=== PATIENT | male | born 1975 | race Caucasian/White ===

== ENCOUNTER 2022-05-13 18:07 | Emergency (ER) | payer OTHER, SELFPAY ==
[2022-05-13 18:08] VITALS: BP 133/98; PULSE 72; RESP 13; TEMP 36.9; O2SAT 99; BMI 30.2
--- NOTE | 2022-05-13 18:24 | ECG_ITS ---
APPROVED REPORT Exam: Resting ECG HR:72 bpm ECG Measurements Heart Rate 72 AXES TN 195 P 7 QRSd 109 QRS -74 QT 385 T 35 QTc 409 Conclusion SINUS RHYTHM LEFT ANTERIOR FASCICULAR BLOCK [QRS AXIS <= -45, QR IN I, RS IN II] ABNORMAL ECG UNCONFIRMED REPORT Electronically signed by : Alton Oneill MD 05/15/2022 21:18:59
--- NOTE | 2022-05-13 18:29 | XR_ITS ---
PROCEDURE INFORMATION: Exam: XR Chest Exam date and time: 05/13/2022 7:41 PM Age: 47 years old Clinical indication: Pain; Angina pectoris; Additional info: Chest pain/shoulder pain TECHNIQUE: Imaging protocol: Radiologic exam of the chest. Views: 1 view. COMPARISON: CT ANGIO CHEST 05/13/2022 7:23 PM FINDINGS: Lungs: Unremarkable. No consolidation. Pleural spaces: Unremarkable. No pleural effusion. No pneumothorax. Heart/Mediastinum: Unremarkable. No cardiomegaly. Bones/joints: Unremarkable. IMPRESSION: No acute findings.
[2022-05-13 18:30] VITALS: BP 141/97; PULSE 71; RESP 18; O2SAT 97
--- NOTE | 2022-05-13 18:33 | XR_ITS ---
PROCEDURE INFORMATION: Exam: XR Left Shoulder Exam date and time: 05/13/2022 7:41 PM Age: 47 years old Clinical indication: Pain; Shoulder; Left TECHNIQUE: Imaging protocol: Radiologic exam of the Left shoulder. Views: 2 or more views. COMPARISON: CT CERVICAL SPINE WO CON 05/13/2022 7:18 PM FINDINGS: Bones/joints: Osseous alignment is normal. No acute fracture or significant arthritic change seen. Soft tissues: Normal. IMPRESSION: Negative left shoulder
[2022-05-13 18:44] LABS: Basophils # 0.1 K/mm3 (0-0.2); Basophils % 1.1 % (0.1-2.0); Eosinophils # 0.1 K/mm3 (0.0-0.4); Eosinophils % 1.7 % (0.1-12.0); Hematocrit 45.3 % (42.0-52.0); Hemoglobin 15.3 g/dL (14.1-18.0); Lymphocytes # 2.5 K/mm3 (0.7-4.5); Lymphocytes % 40.6 % (10-50); Mean Corpuscular HGB Conc 33.7 g/dL (31.8-35.4); Mean Corpuscular Hemoglobin 30.3 pg (27.0-31.2); Mean Corpuscular Volume 89.9 fl (80-94); Mean Platelet Volume 7.3 fl (7.4-10.4); Monocytes # 0.4 K/mm3 (0.1-1.0); Monocytes % 6.9 % (1.7-9.3); Neutrophils # 3.1 K/mm3 (1.8-7.8); Neutrophils % 49.7 % (37.0-80.0); Platelet Count 285 K/mm3 (142-424); Red Blood Count 5.03 M/mm3 (4.60-6.20); Red Cell Distribution Width 13.9 % (11.5-17.5); White Blood Count 6.3 K/mm3 (4.8-10.8)
[2022-05-13 18:47] LABS: Chloride 107 mmol/L (98-107); Potassium 3.9 mmoL/L (3.5-5.1); Sodium 138 mmol/L (136-145)
[2022-05-13 18:50] LABS: Alanine Aminotransferase 26 U/L (12-78); Albumin Level 4.2 g/dl (3.5-5.0); Alkaline Phosphatase 62 U/L (38-126); Anion Gap 10.9 mEq/L (5-15); Aspartate Amino Transferase 32 U/L (17-59); Bilirubin,Direct 0.2 mg/dl (0.0-0.4); Bilirubin,Indirect 0.2 mg/dL (0.0-0.9); Bilirubin,Total 0.4 mg/dl (0.2-1.3); Bilirubin,Unconjugated 0.1 mg/dL (0.0-1.1); Blood Urea Nitrogen 9 mg/dl (9-20); Calcium 8.6 mg/dl (8.4-10.2); Carbon Dioxide 24 mmol/L (22.0-30.0); Creatinine Clearance Estimated 104 mL/min (50-200); Estimated Glomerular Filt Rate 79 ml/min (>60); GFR (African American) 96 ML/MIN (>60); Glucose 101 mg/dl (74-100); Total Protein,Serum 7.6 g/dl (6.3-8.2)
--- NOTE | 2022-05-13 18:54 | PC.NURSE ---
states that pt has been having blurry vision as well. PT states that his left eye is blurry and has been today. MD marques
--- NOTE | 2022-05-13 18:56 | CT_ITS ---
PROCEDURE INFORMATION: Exam: CT Head Without Contrast Exam date and time: 05/13/2022 7:16 PM Age: 47 years old Clinical indication: Stroke-like symptoms; Left upper extremity and other: Left side of face numbness/paresthesia; Additional info: New headache, lue issues TECHNIQUE: Imaging protocol: Computed tomography of the head without contrast. Radiation optimization: All CT scans at this facility use at least one of these dose optimization techniques: automated exposure control; mA and/or kV adjustment per patient size (includes targeted exams where dose is matched to clinical indication); or iterative reconstruction. Other technique: STROKE PROTOCOL was implemented. COMPARISON: No relevant prior studies available. FINDINGS: Brain: No acute intracranial findings. No intracranial hemorrhage. No edema, swelling or mass-effect. No significant white matter disease. There are a few tiny bilateral basal ganglia calcifications which can be physiologic at this age, though these can also be seen with endocrinologic and metabolic diseases. Minimal meningeal calcifications. Cerebral ventricles: The ventricles are normal for age. No hydrocephalus. Paranasal sinuses: Mild bilateral ethmoid sinus mucosal thickening and some opacified air cells. Very mild left maxillary sinus mucosal thickening. No air-fluid levels. Mastoid air cells: Trace fluid within the inferior mastoid air cells bilaterally, with some tiny air-fluid levels, greater on the right, see series 3, image 2. Orbital cavities: No acute intraorbital findings, as visualized. Bones/joints: No acute skull fracture. No lytic lesions. Soft tissues: There are no soft tissue masses or fluid collections. Some scalp calcifications. IMPRESSION: 1. There is no CT evidence of intracranial mass, intracranial hemorrhage, or acute infarct. 2. Trace bilateral mastoid effusions greater on the right. Correlate for possible early acute mastoiditis. 3. Mild chronic ethmoid and maxillary sinusitis; no acute air-fluid levels. 4. Additional nonemergency and chronic findings as above. ASSESSMENT: ASPECTS ([place] Stroke Program Early CT Score) is 10.
--- NOTE | 2022-05-13 18:56 | CT_ITS ---
PROCEDURE INFORMATION: Exam: CTA Head With Contrast, Arteriography Exam date and time: 05/13/2022 7:20 PM Age: 47 years old Clinical indication: Stroke-like symptoms; Lt upper extremity weakness; Additional info: New headache, lue issues TECHNIQUE: Imaging protocol: Computed tomographic angiography of the head with contrast. Exam focused on the arteries. 3D rendering (Not supervised by radiologist): MIP and/or 3D reconstructed images were created by the technologist. Radiation optimization: All CT scans at this facility use at least one of these dose optimization techniques: automated exposure control; mA and/or kV adjustment per patient size (includes targeted exams where dose is matched to clinical indication); or iterative reconstruction. Contrast material: ISOVUE 370; Contrast volume: 75 ml; Contrast route: INTRAVENOUS (IV); COMPARISON: CT HEAD/BRAIN WO CON 05/13/2022 7:16 PM FINDINGS: ANTERIOR CIRCULATION: Right internal carotid artery: Intracranial segment is patent with no significant stenosis. No aneurysm. Right middle cerebral artery: No occlusion or significant stenosis. No aneurysm. Right anterior cerebral artery: No occlusion or significant stenosis. No aneurysm. Left internal carotid artery: Intracranial segment is patent with no significant stenosis. No aneurysm. Left middle cerebral artery: No occlusion or significant stenosis. No aneurysm. Left anterior cerebral artery: No occlusion or significant stenosis. No aneurysm. POSTERIOR CIRCULATION: Right vertebral artery: No occlusion or significant stenosis. No aneurysm. Left vertebral artery: Slightly dominant. No occlusion or significant stenosis. No aneurysm. Basilar artery: No occlusion or significant stenosis. No aneurysm. Right posterior cerebral artery: No occlusion or significant stenosis. No aneurysm. Prominent patent right posterior communicating artery also noted. Left posterior cerebral artery: No occlusion or significant stenosis. No aneurysm. Brain: No definite mass, mass effect, or midline shift. Cerebral ventricles: No ventriculomegaly. Bones/joints: Unremarkable. No acute fracture. Soft tissues: No acute findings. IMPRESSION: No large vessel stenosis or occlusion.
--- NOTE | 2022-05-13 18:56 | CT_ITS ---
PROCEDURE INFORMATION: Exam: CTA Neck With Contrast Exam date and time: 05/13/2022 7:20 PM Age: 47 years old Clinical indication: Stroke-like symptoms; Lt upper extremity weakness; Additional info: New headache, lue issues TECHNIQUE: Imaging protocol: Computed tomographic angiography of the neck with contrast. 3D rendering (Not supervised by radiologist): MIP and/or 3D reconstructed images were created by the technologist. Radiation optimization: All CT scans at this facility use at least one of these dose optimization techniques: automated exposure control; mA and/or kV adjustment per patient size (includes targeted exams where dose is matched to clinical indication); or iterative reconstruction. Contrast material: ISOVUE 370; Contrast volume: 75 ml; Contrast route: INTRAVENOUS (IV); COMPARISON: CT CERVICAL SPINE WO CON 05/13/2022 7:18 PM FINDINGS: Right common carotid artery: No stenosis. No dissection or occlusion. Right internal carotid artery: No stenosis of the extracranial segment. No dissection or occlusion. Right external carotid artery: No occlusion or stenosis of the origin. Left common carotid artery: No stenosis. No dissection or occlusion. Left internal carotid artery: No stenosis of the extracranial segment. No dissection or occlusion. Left external carotid artery: No occlusion or stenosis of the origin. Right vertebral artery: No stenosis. No dissection or occlusion. Left vertebral artery: Dominant left vertebral artery. No stenosis. No dissection or occlusion. Soft tissues: There are no soft tissue masses or fluid collections. Bones/joints: No acute fracture. For detailed cervical spine findings, please see the cervical spine CT report. Other findings: For intracranial findings, please see the previously dictated head CT report. IMPRESSION: No stenosis or occlusion. REFERENCES: NASCET CRITERIA. The degree of stenosis in the cervical segment of the internal carotid artery is based on NASCET criteria. Normal is no stenosis. Mild is less than 50% stenosis. Moderate is 50-69% stenosis. Severe is 70% to 99% stenosis. Total occlusion is no detectable patent lumen. THIS REPORT CONTAINS FINDINGS THAT MAY BE CRITICAL TO PATIENT CARE. STROKE PROTOCOL EXAM. The findings were verbally communicated via telephone conference with Gaviota Richmond at 7:47 PM EST on 05/13/2022. The findings were acknowledged and understood.
--- NOTE | 2022-05-13 18:56 | CT_ITS ---
PROCEDURE INFORMATION: Exam: CT Cervical Spine Without Contrast Exam date and time: 05/13/2022 7:18 PM Age: 47 years old Clinical indication: Numbness; Additional info: New headache, lue issues. Numbness to left side of face TECHNIQUE: Imaging protocol: Computed tomography of the cervical spine without contrast. Radiation optimization: All CT scans at this facility use at least one of these dose optimization techniques: automated exposure control; mA and/or kV adjustment per patient size (includes targeted exams where dose is matched to clinical indication); or iterative reconstruction. COMPARISON: CT HEAD/BRAIN WO CON 05/13/2022 7:16 PM FINDINGS: Bones/joints: No acute fracture. Normal alignment. Abnormal kyphotic curvature suggests cervical muscle spasm. Mild degenerative osteoarthrosis anteriorly at C1-C2 with periarticular spurs and sclerosis. The central spinal canal appears developmentally slightly small and snug for the cord at the C2 through C4 levels, and the canal appears mildly stenotic approximately 10 mm AP diameter at the C2-C3 , C3-C4 and C4-C5 disc levels. There is degenerative disc narrowing and spondylosis at C5-C6, with posterior disc protrusion indenting the thecal sac and mildly stenosing the canal at this level, sagittal series 1002, image 50, canal slightly less than 10 mm AP diameter. Mild disc bulging posteriorly C6-C7 with minimal narrowing of the spinal canal. There is no high-grade central spinal stenosis. The neural foramina appear adequate for exiting nerve roots at each level, with no high-grade foraminal stenoses. Other:For cranial findings, please see the head CT report. Lungs: Lung apices are unremarkable as visualized. Soft tissues: There are no soft tissue masses or fluid collections. IMPRESSION: 1. No acute fracture or listhesis. 2. Mild central spinal stenosis throughout, developmentally slightly small central spinal canal, and there is a shallow posterior disc protrusion at C5-C6 and mild bulging at the other levels. No high-grade spinal stenosis. 3. No significant foraminal stenoses. 4. Cervical muscle spasm. 5. Additional nonemergency and chronic findings as above.
--- NOTE | 2022-05-13 18:58 | CT_ITS ---
PROCEDURE INFORMATION: Exam: CTA Chest With Contrast Exam date and time: 05/13/2022 7:23 PM Age: 47 years old Clinical indication: Pain; Angina pectoris; Additional info: Pain radiating up to head, to back, and down lue TECHNIQUE: Imaging protocol: Computed tomographic angiography of the chest with contrast. 3D rendering (Not supervised by radiologist): MIP and/or 3D reconstructed images were created by the technologist. Radiation optimization: All CT scans at this facility use at least one of these dose optimization techniques: automated exposure control; mA and/or kV adjustment per patient size (includes targeted exams where dose is matched to clinical indication); or iterative reconstruction. Contrast material: ISOVUE 370; Contrast volume: 75 ml; Contrast route: INTRAVENOUS (IV); COMPARISON: CT ANGIO NECK 05/13/2022 7:20 PM FINDINGS: Pulmonary arteries: Normal. No pulmonary emboli. Aorta: Unremarkable. No aortic aneurysm. No aortic dissection. Lungs: Unremarkable. No consolidation. No masses. Pleural spaces: Unremarkable. No pneumothorax. No pleural effusion. Heart: Unremarkable. No cardiomegaly. No pericardial effusion. Lymph nodes: Unremarkable. No enlarged lymph nodes. Bones/joints: Unremarkable. No acute fracture. Soft tissues: Unremarkable. IMPRESSION: No acute findings.
--- NOTE | 2022-05-13 18:58 | HMH.EDGENADL ---
Discharge Plan Disposition Patient Disposition: Home, Self-Care Condition: Good Prescriptions Prescriptions: New methocarbamol 750 mg tablet 750 mg PO Q8H PRN (Reason: pain) Qty: 20 0RF naproxen 500 mg tablet 500 mg PO Q8H PRN (Reason: pain) Qty: 20 0RF Referrals Follow up/Referrals: Provider,Referral, [Primary Care Provider] - See instructions Activity Restrictions/Add. Instructions Additional Instructions/Restrictions: You were evaluated in the emergency department today. Please follow-up with your primary care provider over the next 48 hours. complaint evaluation supervisor your prescriptions and take them as needed for pain. Return to the emergency department for any new or worsening symptoms. Clinical Impressions Clinical Impression: Cervical radicular pain Instructions Patient Instructions: DI for Cervical Radiculopathy, DI for Acute Pain -- Adult Discharge ED Provider: Gaviota Richmond General Adult HPI General Chief complaint: PAIN Stated complaint: GOMEZ, pain left arm Time Seen by Provider: 05/13/22 18:29 Mode of Arrival: Ambulatory Source of Information: Patient Limitations: No Limitations Description of Symptoms (Recalled from ER Triage Doc. by RN): c/o left shoulder pain that comes into his left chest down to his elbow, pain started at work this morning sometime. The pain comes and goes without doing anything. Left sided GOMEZ that started at the same time History of Present Illness HPI narrative: This patient is a 47-year-old male who reports a history of cardiomegaly presented to the emergency department for evaluation of left-sided headache, left-sided neck pain, and left-sided shoulder pain that radiates to his left chest. It also goes down his left upper extremity to his elbow. He describes it as a sharp shooting pain. He denies any recent traumatic injuries. he denies experiencing anything like this in the past. He reports that he has had a daily headache for the last several days, which is new for him. He denies any vision changes, numbness, tingling, unilateral weakness, or other concerns. He did not take any medications at home to alleviate his symptoms. He denies any shortness of breath, abdominal pain, nausea, vomiting, changes in bowel movements, or other concerns. Related Data Previous Rx's Medication Instructions Recorded methocarbamol 750 mg tablet 750 mg PO Q8H PRN pain #20 tabs 01/04/23 naproxen 500 mg tablet 500 mg PO Q8H PRN pain #20 tabs 05/13/22 Allergies Allergy/AdvReac Type Severity Reaction Status Date / Time No Known Allergies Allergy Verified 05/13/22 18:36 [facility] Disclaimer: The information contained in this section may have been updated after the patient was seen, as this information can be updated by other users. Social History Smoking Status: Current every day smoker alcohol intake: never current occupational status: employed Travel in the last 8 weeks: None ROS Obtained: Yes All systems reviewed & no additional complaints except as documented 14 point review of systems obtained and negative except as mentioned in HPI. Physical Exam General General appearance: alert and in no apparent distress Head Head exam: atraumatic and normocephalic Eye Eye exam: Present normal appearance, PERRL and EOMI ENT ENT exam: Present normal exam and normal oropharynx Neck Neck exam: Present normal inspection, full ROM and trachea midline Chest Chest inspection: Present normal inspection and symmetric chest wall rise; Absent tenderness Respiratory Respiratory exam: Present normal lung sounds bilaterally; Absent respiratory distress Cardiovascular Cardiovascular exam: Present regular rate and normal rhythm Abdominal Exam Abdominal exam: Present soft; Absent distention, tenderness or guarding Extremities Exam Extremities exam: Present normal inspection, full ROM and normal capillary refill; Absent tenderness or edema
[2022-05-13 19:00] VITALS: BP 133/97; PULSE 69; RESP 17; O2SAT 100
[2022-05-13 19:11] LABS: Troponin I < 0.01 ng/ml (0.00-0.034)
--- NOTE | 2022-05-13 19:12 | PC.NURSE ---
pt is radiology
--- NOTE | 2022-05-13 19:30 | PC.NURSE ---
Pt back in room from RAD. RAD at for portable CXR.
--- NOTE | 2022-05-13 19:53 | PC.NURSE ---
pt in bed, family in room,stated nothing was needed
[2022-05-13 20:00] VITALS: BP 133/92; PULSE 65; RESP 18; O2SAT 100
--- NOTE | 2022-05-13 20:22 | PC.NURSE ---
Dr. Richmond at BS
[2022-05-13 20:51] VITALS: BP 124/96; PULSE 69; RESP 15; TEMP 37.1; O2SAT 100
== END 2022-05-13 20:55 | disposition home or self-care (01) ==
PROVIDERS: Emergency Provider Emergency Medicine
DX: M54.12 Radiculopathy, cervical region (principal); R51.9 Headache, unspecified; M79.602 Pain in left arm; F17.210 Nicotine dependence, cigarettes, uncomplicated; I51.7 Cardiomegaly
CPT/HCPCS: 70450; 70496; 70498; 71045; 71275; 72125; 73030; 80048; 80076; 84484; 85025; 93005; 96374; 99285; Q9967

== ENCOUNTER → 2022-12-11 23:30 | Outpatient (CLI) | payer OTHER, SELFPAY ==
[2022-12-11 18:07] LABS: Basophils % 0.3 % (0.1-2.0); Eosinophils # 0.1 K/mm3 (0.0-0.4); Eosinophils % 1.3 % (0.1-12.0); Hematocrit 49.8 % (42.0-52.0); Hemoglobin 16.2 g/dL (14.1-18.0); Lymphocytes # 1.9 K/mm3 (0.7-4.5); Lymphocytes % 37.2 % (10-50); Mean Corpuscular HGB Conc 32.6 g/dL (31.8-35.4); Mean Corpuscular Hemoglobin 28.8 pg (27.0-31.2); Mean Corpuscular Volume 88.4 fl (80-94); Mean Platelet Volume 8.1 fl (7.4-10.4); Monocytes # 0.4 K/mm3 (0.1-1.0); Monocytes % 7.3 % (1.7-9.3); Neutrophils # 2.7 K/mm3 (1.8-7.8); Neutrophils % 53.8 % (37.0-80.0); Platelet Count 289 K/mm3 (142-424); Red Blood Count 5.63 M/mm3 (4.60-6.20); Red Cell Distribution Width 13.3 % (11.5-17.5)
[2022-12-11 19:26] LABS: Alanine Aminotransferase 26 U/L (12-78); Albumin Level 4.7 g/dl (3.5-5.0); Albumin/Globulin Ratio 1.3 (1.1-1.8); Alkaline Phosphatase 66 U/L (38-126); Anion Gap 19.2 mEq/L (5-15); Aspartate Amino Transferase 29 U/L (17-59); Bilirubin,Indirect 0.4 mg/dL (0.0-0.9); Bilirubin,Total 0.4 mg/dl (0.2-1.3); Bilirubin,Unconjugated 0.5 mg/dL (0.0-1.1); Blood Urea Nitrogen 10 mg/dl (9-20); Calcium 9.4 mg/dl (8.4-10.2); Carbon Dioxide 18 mmol/L (22.0-30.0); Chloride 107 mmol/L (98-107); Chol/HDL Ratio 4.5 (1-3.5); Cholesterol 215 mg/dl (140-200); Estimated Glomerular Filt Rate 64 ml/min (>60); GFR (African American) 78 ML/MIN (>60); Globulin 3.7 g/dL (1.3-3.2); Glucose 87 mg/dl (74-100); HDL Cholesterol 48 mg/dl (40-60); Potassium 4.2 mmoL/L (3.5-5.1); Sodium 140 mmol/L (136-145); Total Protein,Serum 8.4 g/dl (6.3-8.2); Triglycerides 192 mg/dl (30-150); VLDL Cholesterol 38 mg/dL (0-40)
[2022-12-11 19:37] LABS: Direct LDL Cholesterol 95.74 mg/dL (100-129)
[2022-12-11 19:48] LABS: 25-OH Vitamin D, Total 28.2 ng/mL (30-100)
[2022-12-11 19:58] LABS: Thyroid Stimulating Hormone 0.84 uIU/mL (0.465-4.68)
== END ==
PROVIDERS: PCP Nurse Practitioner Family; Visit Provider Nurse Practitioner Family
DX: M54.12 Radiculopathy, cervical region (principal); I25.2 Old myocardial infarction; F10.10 Alcohol abuse, uncomplicated; E55.9 Vitamin D deficiency, unspecified; F17.200 Nicotine dependence, unspecified, uncomplicated
CPT/HCPCS: 80053; 80061; 80076; 82306; 84443; 85025

== ENCOUNTER → 2023-03-25 11:43 | Outpatient (CLI) | payer OTHER, SELFPAY ==
--- NOTE | 2023-03-25 11:49 | NM_ITS ---
APPROVED REPORT Exam: Nuclear Stress Test Indication: chest pain..palpitaitons Patient Location: Outpatient Stress Tech: Ida Holbrook MA Tech:DAYSI Marsh RT(R)(N) Ht: 5 ft 5 in Wt: 181 lbs HR: 69 bpm BP: 142/103 mmHg BSA: 1.90 m2 TID: 1.18 BMI: 30.1 History: chest pain..palpitaitons Procedure: Patient exercised on Tree protocol 10:04 minutes and sec, resting heart rate 69 bpm, resting blood pressure 142/106 mmHg, with exercise maximum heart rate achived was 134 bpm which is 79 % of the maximum predicted heart rate and blood pressure was 198/100 mmHg. Test was stopped due to fatigue. Patient has Average exercise capacity, achieved 12.8 METs of workload on treadmill, the blood pressure response to exercise was Borderline exaggerated hypertensive. Cardiac Stress and Resting SPECT Images: Cardiac Stress and Resting SPECT images were obtained using technetium 99m Myoview 32.7 mCi stress and 10.35 mCi at rest. The patient had a suboptimal stress test as he was unable to achieve target HR at peak stress. Resting and stress imaging in supine and prone positions demonstrate no evidence of fixed or reversible perfusion defects. Gated imaging demonstrates low normal global LV systolic function. LVEF is calculated at 50%. Conclusion: Suboptimal stress test due to inability to achieve target HR. no evidence of fixed or reversible perfusion defects at the degree of HR achieved. Gated imaging demonstrates low normal global LV systolic function. LVEF is calculated at 50%. Of note, the patient was borderline exaggerated hypertensive at peak stress. As this was suboptimal and nondiagnostic stress test, further evaluation with alternative diagnostic modalities is recommended, if deemed clinically appropriate. Electronically signed by : Iris De La Rosa MD 03/31/2023 15:39:27
--- NOTE | 2023-03-25 12:53 | CA_ITS ---
APPROVED REPORT EXAM: Comprehensive 2D, Doppler, and color-flow Echocardiogram Internal Sales Engineer: Merlyn Donaldson RVT Ht: 5 ft 5 in Wt: 175lbs BSA: 1.87 BP: 141/101 mmHg Indications: SOA,CP,RBBB,SMOKER 2D Dimensions LVOT 2.26 cm (M/F) 1.5-2.5 LA Volume 33.40 mL LA Volume Index 17.86 mL/m2 (M/F) 16-34 M-Mode Dimensions RVDd 2.57 cm (0.9-2.6) LA Diam 2.55 cm (1.9-4.0) LVDd 4.27 cm (3.5-5.7) Ao Diam 3.39 cm (2.0-3.7) LVDs 2.91 cm (3.5-5.7) IVSd 0.72 cm (0.6-1.1) PWd 0.61 cm (0.6-1.1) EF (Teich) 60.20% FS 31.90% EDV (Teich) 81.70 mL TAPSE 2.29 (<1.7) ESV (Teich) 32.50 mL LV Diastology E Decel Time 217.00 (160-240 msec) E/A Ratio 0.9 MED E' 5.60 (< 7 cm/sec) E'/MED E' Ratio 11.02 (>14) LAT E' 9.40 (<10 cm/sec) E/LAT E' Ratio 6.56 (>14) Aortic Valve LVOT Max 79.00 (70-110 cm/s) LVOT VTI 15.35 cm AoV Peak Darius. 79.00 (50-130 cm/s) AO Peak GR. 2.50 mmHg AO Mean GR. 1.60 (<5 mmHg) AO VTI 16.47 (18-25 cm) BASIL (VTI) 3.74 (2.5-4.5 cm2) Mitral Valve MV E Max Darius. 62.00 (40-130 cm/s) MV A Velocity 68.00 (40-130 cm/s) E/A Ratio 0.91 MV Decel. Time 217.00 (160-240 ms) MV PHT 63.00 ms Pulmonary Valve PV Peak Velocity 61.00 (50-150 cm/s) Left Ventricle The left ventricle is normal size. The left ventricular systolic function is normal. The left ventricular ejection fraction is within the normal range. There is normal left ventricular wall thickness. There is normal LV segmental wall motion. The left ventricular diastolic function is normal. LVEF is 60%. Right Ventricle The right ventricle is normal size. The right ventricular systolic function is normal. Atria The left atrium size is normal. The right atrium size is normal. There is no Doppler evidence of interatrial shunt. Aortic Valve The aortic valve opens well. There is no aortic valvular stenosis. No aortic regurgitation is present. Mitral Valve The mitral valve is normal in structure. No evidence of mitral valve stenosis. Trace mitral valve regurgitation noted. Tricuspid Valve The tricuspid valve leaflets are thin and pliable. Trace tricuspid regurgitation. There is insufficient TR jet to estimate RVSP. Pulmonic Valve The pulmonary valve is normal in structure. Trace pulmonic regurgitation. Great Vessels The aortic root is normal in size. The ascending aorta is normal in size. IVC is normal in size and collapses >50% with inspiration. Pericardium There is no pericardial effusion. Other Information Study Quality: Fair Conclusion Normal biventricular systolic function. No significant valvular stenosis or regurgitation. Electronically signed by : Iris De La Rosa MD 03/31/2023 15:33:27
--- NOTE | 2023-03-25 14:06 | CA_ITS ---
APPROVED REPORT Exam: Exercise Treadmill Technologist: Ida Floyd, Ht: 5 ft 5 in Wt: 175 lbs BSA: 1.87 m2 HR: 63 bpm BP: 137/96 mmHg Rhythm: NSR Medical History Medications: Aspirin,,,,, Metoprolol Succinate ER,,,,, Stress Test Details Test: Tree HR Resting HR: 69 bpm Max Heart Rate (APMHR): 170 bpm Max HR Achieved: 134 bpm Target HR (85% APMHR): 145 bpm % of APMHR: 79 Recovery HR: 86 bpm HR response to stress: Blunted HR response to stress BP Resting BP: 142.0/106 mmHg Max BP: 198/100 mmHg Recovery BP: 128.0/102.0 mmHg BP response to stress: Borderline hypertensive response to stress. ECG Resting ECG: NSR, rightward axis Stress ECG: < 0.[address] depression Arrhythmia: None Recovery ECG: Return to baseline within 3 minutes of recovery Recovery Arrhythmia: None Clinical Exercise duration: 10:04 min Highest Stage Achieved: Exercise capacity: 12.8 METs Overall Exercise Capacity for Age: Average Stress ECG Conclusion This is a suboptimal stress test as the patient was unable to achieve target HR. The patient was able to exercise for a total of 10 minutes, 04 seconds. He achieved a total of 12.8 METS. He has average exercise capacity compared to age and sex matched peers. He has suboptimal HR, but borderline hypertensive, response to exercise. Max HR: 134 % of PM: 79% Max BP: 198/100 METs: 12.8 Test stopped due to: Leg fatigue, SOA Symptoms: mild chest tightness. Arrhythmias/Ectopy: None ST-T Changes: Normal ST response to exercise. Conclusion: Suboptimal stress test due to inability to achieve target HR. Mild CP with normal stress EKGs to HR achieved. (79% of PM). Borderline hypertensive response to exercise. Myoview images reported separately. Test Summary REST . . . . . . . Sitting REST . . . . . . . Standing REST 02:33 0.0 0.0 69 . 142/106 . . Stage 1 01:00 10.0 1.7 90 . . . . Stage 1 02:00 10.0 1.7 97 . . . . Stage 1 03:00 10.0 1.7 100 . 166/100 . . Stage 2 01:00 12.0 2.5 109 . . . . Stage 2 02:00 12.0 2.5 111 . 176/ 98 . . Stage 2 03:00 12.0 2.5 113 . 176/ 98 . . Stage 3 01:00 14.0 3.4 120 . . . . Stage 3 02:00 14.0 3.4 121 . 198/100 . . Stage 3 03:00 14.0 3.4 123 . 198/100 . . Stage 4 . . . . . . . Myoview Injected Stage 4 01:00 16.0 4.2 133 . . . . Stage 4 01:04 16.0 4.2 133 . . . Stop exercise at 10:04 RECOVERY 01:00 0.0 0.0 113 . . . . RECOVERY 02:00 0.0 0.0 91 . . . . RECOVERY 03:00 0.0 0.0 89 . 159/100 . . RECOVERY 04:00 0.0 0.0 85 . 147/ 96 . . RECOVERY 05:00 0.0 0.0 86 . 147/ 96 . . RECOVERY 06:00 0.0 0.0 91 . 128/102 . . RECOVERY 06:36 0.0 0.0 91 . 128/102 . . Electronically signed by : Iris De La Rosa MD 03/31/2023 15:36:24
== END ==
LOC: RAD 11:44
PROVIDERS: PCP Nurse Practitioner Family; Visit Provider Physician Assistant
DX: I45.10 Unspecified right bundle-branch block (principal); R06.00 Dyspnea, unspecified; R07.89 Other chest pain; R94.31 Abnormal electrocardiogram [ECG] [EKG]; F17.200 Nicotine dependence, unspecified, uncomplicated
CPT/HCPCS: 78452; 93017; 93018; 93306; A9502

== ENCOUNTER 2023-06-01 08:38 | Day surgery (SDC) | payer BC, SELFPAY ==
[2023-05-28 10:32] VITALS: BMI 29.3
[2023-06-01] MEDS: LACTATED RINGERS 1000ML 1,000 ML 25 ML IV (08:53)
[2023-06-01 08:56] VITALS: BP 146/88; PULSE 75; RESP 18; TEMP 36.2; O2SAT 98
--- NOTE | 2023-06-01 09:06 | P.PNANES_ITS ---
[facility] Disclaimer: The information contained in this section may have been updated after the patient was seen, as this information can be updated by other users. Medical History Cervical radicular pain Equivocal stress test History of open arm wound Surgical History History of surgery on arm Family History Other Family history of hypertension Family history of stroke Social History Smoking Status: Current every day smoker alcohol intake: current substance use type: denies use current occupational status: employed Travel in the last 8 weeks: None [facility] Anesthesia Checklist Patient Identification Patient Identification: Arm Band Structural Data Admitted From: Home Planned Operative Procedure/s: Colonoscopy Consent for Planned Operative Procedure(s) Verified: Yes Verified Documents: Surgical Consent and History and Physical NPO Status Verified Time NPO: 00:00 Additional verifications Anesthesia Reactions: No Airway Assessment Mallampati Score:: Class II C-Spine Mobility Assessed: Yes TMJ Mobility Assessed: Yes Dentition: Poor Dentition Neurological Assessment Level of Consciousness: Awake and Alert Anesthesia Plan Anesthesia Risk discussed: Yes Anesthesia Plan: Verified ASA Class: II Anesthesia Type: MAC
--- NOTE | 2023-06-01 09:21 | [facility].SCOPE ---
Procedure: Date: 06/01/23 Patient Date of :: 1975 Procedure Performed:: Colonoscopy with polypectomy Indications:: Screening Performing Provider:: Jason Lopes MD Referring Provider:: . Sedation:: Monitored anesthesia care Procedure:: After informed consent was obtained the patient was taken to the endoscopy suite. Sedation ensued after the patient was transferred to the left lateral decubitus position. Pulse, blood pressure, and oxygen saturation were monitored throughout the procedure. Digital rectal exam revealed no significant abnormality. The colonoscope was placed in position. The entire colon was evaluated. The colonoscope was carefully removed and the patient was transferred to recovery in stable condition. Please see findings and specimens below for detail. Findings:: Bowel preparation poor Profound lack of relaxation (particularly sigmoid) Moderate tortuosity Multiple lobulated/sessile polyps (see specimens) Specimens:: Lobulated sessile periappendiceal polyp (cold snare) Lobulated sessile right colon polyp (cold snare) Lobulated sessile transverse colon polyp (cold snare) Lobulated sessile splenic flexure polyp (cold snare) Recommendations:: Timing of repeat colonoscopy is pending pathology will likely be around 3-6 months with extended bowel preparation secondary to poor bowel preparation and profound lack of relaxation. Consider gastroenterology consultation secondary to possible severe constipation and possible irritable bowel syndrome. Complications:: No immediate Estimated blood obtained (mL): 1 Colonoscopy Component Colonoscopy Component Was a colonoscopy performed during today's procedure?: Yes Recommended follow up colonoscopy of at least 10 years?: No If no, follow up colonoscopy recommended in ___ years?: (See above) Reason for not recommending >/= 10 yr follow-up interval?: (See above)
[2023-06-01 09:22] VITALS: O2SAT 98
[2023-06-01 09:55] VITALS: BP 112/70; PULSE 80; RESP 14; TEMP 36.1; O2SAT 96
[2023-06-01 10:05] VITALS: BP 111/65; PULSE 81; RESP 16; O2SAT 97
[2023-06-01 10:15] VITALS: BP 91/64; PULSE 82; RESP 16; O2SAT 99
[2023-06-01 10:25] VITALS: BP 136/78; PULSE 79; RESP 16; TEMP 36.7; O2SAT 100
== END 2023-06-01 10:25 | disposition home or self-care (01) ==
PROVIDERS: PCP Nurse Practitioner Family; Visit Provider Surgery
PROC: 0DJD8ZZ Inspection of Lower Intestinal Tract, Via Natural or Artificial Opening Endoscopic (ICD-10-PCS; CPT 45385; principal; 2023-06-01 09:30)
DX: Z12.11 Encounter for screening for malignant neoplasm of colon (principal); D12.0 Benign neoplasm of cecum; D12.2 Benign neoplasm of ascending colon; D12.3 Benign neoplasm of transverse colon; Z91.199 Patient's noncompliance with other medical treatment and regimen due to unspecified reason; K56.2 Volvulus
CPT/HCPCS: 45385

== ENCOUNTER 2024-09-08 15:31 | Outpatient (CLI) | payer BC, SELFPAY ==
[2024-09-08 18:28] LABS: Basophils % 0.8 % (0.1-2.0); Eosinophils # 0.1 Kmm3 (0.0-0.4); Eosinophils % 1.9 % (0.1-12.0); Hematocrit 48.3 % (42.0-52.0); Hemoglobin 16.6 g/dL (14.1-18.0); Lymphocytes # 2.5 K/mm3 (0.7-4.5); Mean Corpuscular HGB Conc 34.4 g/dL (31.8-35.4); Mean Corpuscular Hemoglobin 30.4 pg (27.0-31.2); Mean Corpuscular Volume 88.5 fl (80-94); Mean Platelet Volume 9.5 fl (7.4-10.4); Monocytes # 0.6 K/mm3 (0.1-1.0); Monocytes % 10.8 % (1.7-9.3); Neutrophils # 2.1 K/mm3 (1.8-7.8); Neutrophils % 39.3 % (37.0-80.0); Nucleated Red Blood Cells # 0 10^3/uL; Nucleated Red Blood Cells % 0 %; Platelet Count 206 K/mm3 (142-424); Red Blood Count 5.46 M/mm3 (4.60-6.20); Red Cell Distribution Width 13.2 % (11.5-17.5); Red Cell Distribution Width-SD 42.9 fL; White Blood Count 5.3 K/mm3 (4.8-10.8)
[2024-09-08 19:12] LABS: Alanine Aminotransferase 33 U/L (12-78); Albumin Level 4.1 g/dl (3.5-5.0); Albumin/Globulin Ratio 1.2 (1.1-1.8); Alkaline Phosphatase 56 U/L (38-126); Aspartate Amino Transferase 29 U/L (17-59); Bilirubin,Total 0.7 mg/dl (0.2-1.3); Blood Urea Nitrogen 14 mg/dl (9-20); Calcium 9.1 mg/dl (8.4-10.2); Carbon Dioxide 20 mmol/L (22.0-30.0); Chloride 114 mmol/L (98-107); Chol/HDL Ratio 4.9 (1-3.5); Cholesterol 188 mg/dl (140-200); Estimated Glomerular Filt Rate 71 ml/min (>60); GFR (African American) 85 ML/MIN (>60); Globulin 3.4 g/dL (1.3-3.2); Glucose 94 mg/dl (74-100); HDL Cholesterol 38 mg/dl (40-60); Sodium 138 mmol/L (136-145); Total Protein,Serum 7.5 g/dl (6.3-8.2); Triglycerides 267 mg/dl (30-150); VLDL Cholesterol 53 mg/dL (0-40)
[2024-09-08 19:24] LABS: Direct LDL Cholesterol 78.62 mg/dL (100-129)
[2024-09-08 19:26] LABS: 25-OH Vitamin D, Total 24.5 ng/mL (30-100)
[2024-09-08 19:44] LABS: Prostate Specific Ag Screen 1.1 ng/ml (0.0-4.0); Thyroid Stimulating Hormone 0.97 uIU/mL (0.465-4.68)
[2024-09-08 20:03] LABS: Vitamin B12 583 pg/mL (239-931)
[2024-09-08 20:05] LABS: Hemoglobin A1C 5.9 % (4.0-6.0)
== END 2024-09-08 23:59 | disposition home or self-care (01) ==
LOC: LAB.DROPOF 09-11 11:18
PROVIDERS: PCP Family Medicine; Visit Provider Family Medicine
DX: Z00.00 Encounter for general adult medical examination without abnormal findings (principal); E55.9 Vitamin D deficiency, unspecified; R20.0 Anesthesia of skin; R06.09 Other forms of dyspnea; Z68.28 Body mass index [BMI] 28.0-28.9, adult; E66.3 Overweight
CPT/HCPCS: 80053; 80061; 82306; 82607; 83036; 84443; 85025; G0103